=== PATIENT | female | born 1945 | race Caucasian/White ===

== ENCOUNTER 2019-03-22 09:59 | Emergency (ER) | payer MEDICARE ==
--- NOTE | 2019-03-22 10:31 | XRAY Report ---
Reason: chest pain Procedure Date: 03/22/2019 Accession Number: [id number] / [id number] Procedure: XR - Chest 1 View X-Ray CPT Code: 76219 Final Report FULL RESULT: EXAM: CHEST RADIOGRAPHY EXAM DATE: 03/22/2019 10:23 AM. CLINICAL HISTORY: Chest pain. COMPARISON: None. TECHNIQUE: 1 view. FINDINGS: Lungs/Pleura: No focal opacities evident. No visible pleural effusion. No pneumothorax. Mediastinum: Within exam limitations, the cardiomediastinal contour is normal. Other: Small hiatal hernia is suggested. IMPRESSION: No focal consolidations identified. Small hiatal hernia. RADIA
--- NOTE | 2019-03-22 10:34 | CT Report ---
Reason: near syncope Procedure Date: 03/22/2019 Accession Number: [id number] / [id number] Procedure: CT - Head W/O Stroke Protocol CPT Code: Final Report FULL RESULT: EXAM: CT HEAD EXAM DATE: 03/22/2019 10:16 AM. CLINICAL HISTORY: Near syncope. COMPARISON: BRAIN W/WO 02/23/2015 1:15 PM. TECHNIQUE: Multiaxial CT images were obtained from the foramen magnum to the vertex. Reformats: Sagittal and coronal. IV contrast: None. In accordance with CT protocol optimization, one or more of the following dose reduction techniques were utilized for this exam: automated exposure control, adjustment of mA and/or KV based on patient size, or use of iterative reconstructive technique. FINDINGS: Parenchyma: No intraparenchymal hemorrhage. No evidence of mass, midline shift, or CT findings of acute infarction. Toscano-white differentiation is distinct. Extraaxial Spaces: Normal for age. No subdural or epidural collections identified. Ventricles: Mild prominence of lateral ventricles similar to prior MRI. No mass-effect or no midline shift. Sinuses and Orbits: Imaged paranasal sinuses, orbits, and mastoids show no significant abnormality. Bones: No evidence of fracture or calvarial defect. Other: Mild right occipital scalp soft tissue thickening which may represent a contusion.. IMPRESSION: No CT evidence of acute intracranial process. RADIA The critical test notification system was initiated by Dr. Osmani Hollis at 10:32 AM on 03/22/2019. The above critical test findings were discussed with Dr. Raymond by Dr. Osmani Hollis at 10:34 AM on 03/22/2019.
[2019-03-22] MEDS ORDERED: ADENOSINE 6 MG/2 ML VIAL IVP ONE (10:38)
[2019-03-22 10:41] LABS: BASOPHILS % (AUTO) 0.5 %; EOSINOPHILS # (AUTO) 0.1 10^3/uL (0.0-0.7); EOSINOPHILS % (AUTO) 1.5 %; LYMPHOCYTES # (AUTO) 1.6 10^3/uL (1.5-3.5); LYMPHOCYTES % (AUTO) 19.6 %; MEAN CORPUSCULAR HEMOGLOBIN 29.3 pg (27.0-31.0); MEAN CORPUSCULAR HGB CONC 32.1 g/dL (32.0-36.0); MEAN CORPUSCULAR VOLUME 91.2 fL (81.0-99.0); MEAN PLATELET VOLUME 9.4 fL (7.9-10.8); MONOCYTES # (AUTO) 0.6 10^3/uL (0.0-1.0); MONOCYTES % (AUTO) 7.7 %; NEUTROPHILS # (AUTO) 5.8 10^3/uL (1.5-6.6); NEUTROPHILS % (AUTO) 70.3 %; PLT - PLATELET COUNT 248 10^3/uL (130-450); RED BLOOD COUNT 5.46 10^6/uL (4.20-5.40); RED CELL DISTRIBUTION WIDTH 13.5 % (12.0-15.0); WHITE BLOOD COUNT 8.2 x10^3/uL (4.8-10.8)
[2019-03-22] MEDS ORDERED: ADENOSINE 6 MG/2 ML VIAL IVP STA (10:41)
[2019-03-22 10:45] LABS: PT - PROTHROMBIN TIME 11.8 secs (9.9-12.6)
[2019-03-22 10:52] LABS: ALBUMIN 3.9 g/dL (3.2-5.5); ALBUMIN/GLOBULIN RATIO 1.2 (1.0-2.2); ALKALINE PHOSPHATASE 62 IU/L (42-121); ALT ALANINE AMINOTRANSFERASE 22 IU/L (10-60); AST ASPARTATE AMINOTRANSFERASE 26 IU/L (10-42); BILIRUBIN,TOTAL 1.4 mg/dL (0.2-1.0); BUN - BLOOD UREA NITROGEN 19 mg/dL (6-20); CALCIUM 9.5 mg/dL (8.5-10.3); CARBON DIOXIDE - CO2 21 mmol/L (21-32); CHLORIDE 108 mmol/L (101-111); CREATININE 0.8 mg/dL (0.4-1.0); GFR - MDRD 71 (>89); GLUCOSE 149 mg/dL (70-100); LIPASE 41 U/L (22-51); SODIUM 139 mmol/L (135-145); TOTAL PROTEIN 7.1 g/dL (6.7-8.2)
[2019-03-22 12:07] LABS: MUDS CUTOFF CONCENTRATIONS CUTOFF CONC BELOW:
[2019-03-22 12:09] LABS: BILIRUBIN,URINE NEGATIVE (NEGATIVE); GLUCOSE, URINE (UA) NEGATIVE (NEGATIVE); KETONES,URINE (UA) NEGATIVE (NEGATIVE); LEUKOCYTE ESTERASE, URINE SMALL (NEGATIVE); NITRITE,URINE POSITIVE (NEGATIVE); OCCULT BLOOD,URINE TRACE-INTA (NEGATIVE); PROTEIN,URINE NEGATIVE (NEGATIVE); UROBILINOGEN,URINE 0.2 (NORMAL) E.U./dL (NORMAL)
[2019-03-22 12:11] LABS: CLARITY,URINE HAZY (CLEAR)
[2019-03-22 12:19] LABS: AMPHETAMINE SCREEN,URINE NEGATIVE (NEGATIVE); BACTERIA,URINE Moderate /HPF (None Seen); BENZODIAZEPINES SCREEN, URINE NEGATIVE (NEGATIVE); COCAINE SCREEN URINE NEGATIVE (NEGATIVE); METHADONE SCREEN, URINE NEGATIVE (NEGATIVE); METHAMPHETAMINES SCREEN, URINE NEGATIVE (NEGATIVE); OPIATE SCREEN, URINE NEGATIVE (NEGATIVE); OXYCODONE SCREEN, URINE NEGATIVE (NEGATIVE); PROPOXYPHENE SCREEN, URINE NEGATIVE (NEGATIVE); RBC,URINE 0-5 /HPF (0-5); SQUAMOUS EPITHELIAL CELL,UR MANY Squamous (<= Few); TRICYCLIC ANTIDEPRESSANT,URINE NEGATIVE (NEGATIVE)
--- NOTE | 2019-03-22 12:36 | ED Physician Documentation ---
History of Present Illness - Stated complaint Stated Complaint: NUMBNESS - Chief complaint Chief Complaint: Neuro - History obtained from History obtained from: Patient - History of Present Illness Timing: Prior to arrival - Additonal information Additional information: This is a 73-year-old woman who presents with her complaints that she nearly passed out. He was down in his shop when she came down there to tell him something and she just kind of crumpled to the ground. She did not hit her head she did not pass out. He helped her up and they went back up to the house where she continued to complain that she was not feeling right. She did complain that she felt like her heart was beating fast right before she fell down. She also complained of a little numbness in her face. She is never had anything like this happen before but she has a history of Alzheimer's. Once he got her back to the house she seemed to be a little bit more confused than normal. She has not recently been ill. No sore throat stuffy nose or cough. No vomiting. She did not experience any incontinence. She did eat this morning. recalled an episode of A. fib when she was in [place] years ago. 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 fib. She was never placed on any treatment for it. Review of Systems Unable to obtain: Dementia Constitutional: denies: Fever Cardiac: reports: Palpitations Respiratory: denies: Cough GI: denies: Nausea, Vomiting, Diarrhea : denies: Dysuria Neurologic: reports: Near syncope PD PAST MEDICAL HISTORY - Past Medical History Cardiovascular: Atrial fibrillation - Allergies Allergies/Adverse Reactions: Allergies Allergy/AdvReac Type Severity Reaction Status Date / Time No Known Drug Allergies Allergy Verified 03/22/19 10:07 - Social History Does the pt smoke?: No Smoking Status: Never smoker PD ED PE NORMAL - Vitals Vital signs reviewed: Yes - General General: Alert and oriented X 3, No acute distress, Well developed/nourished, Other (Thin elderly woman she is mildly confused. Slow to answer questions.) - HEENT HEENT: Atraumatic, PERRL, Moist mucous membranes - Neck Neck: Supple, no meningeal sign, No adenopathy, Thyroid normal - Cardiac Cardiac: Other (Tachycardic) - Respiratory Respiratory: No respiratory distress (. No murmur.) - Abdomen Abdomen: Normal bowel sounds - Derm Derm: Normal color, Warm and dry, No rash - Neuro Neuro: [employer] 2-12 intact, No motor deficit, No sensory deficit, Normal speech - Psych Psych: Normal mood, Normal affect Results - Vitals Vitals: Vital Signs - 24 hr 03/22/19 03/22/19 03/22/19 10:20 10:30 11:00 Temperature 37.0 C Heart Rate 175 H 166 H 77 Respiratory 18 17 15 Rate Blood Pressure 115/80 98/78 101/71 O2 Saturation 99 96 97 03/22/19 03/22/19 03/22/19 12:00 12:30 12:59 Temperature 36.8 C Heart Rate 80 86 80 Respiratory 14 14 18 Rate Blood Pressure 112/73 114/74 115/79 O2 Saturation 97 99 98 Oxygen O2 Source Room air - EKG (time done) 1029 Rate: Rate (enter#) (170), Tachy Rhythm: SVT Intervals: No: Wide QRS Ischemia: Non specific changes Compare to prior EKG: Old EKG unavailable 1155 Rate: Rate (enter#) (74) Rhythm: NSR Intervals: Normal NE. No: Wide QRS Ischemia: Normal ST segments, T wave inversion (III, aVF) Compare to prior EKG: Changed from prior EKG (SVT has been converted to a sinus rhythm.) - Labs Labs: Laboratory Tests 03/22/19 03/22/19 03/22/19 10:30 10:30 10:30 WBC 8.2 RBC 5.46 H Hgb 16.0 Hct 49.8 H MCV 91.2 MCH 29.3 MCHC 32.1 RDW 13.5 Plt Count 248 MPV 9.4 Neut # (Auto) 5.8 Lymph # (Auto) 1.6 Worth # (Auto) 0.6 Eos # (Auto) 0.1 Baso # (Auto) 0.0 Absolute Nucleated RBC 0.00 Nucleated RBC % 0.0 PT 11.8 INR 1.0 Sodium 139 Potassium 3.8 Chloride 108 Carbon Dioxide 21 Anion Gap 10.0 BUN 19 Creatinine 0.8 Estimated GFR (MDRD) 71 L Glucose 149 H Calcium 9.5 Total Bilirubin 1.4 H AST 26 ALT 22 Alkaline Phosphatase 62 Troponin I High Sens Total Protein 7.1 Albumin 3.9 Globulin 3.2 Albumin/Globulin Ratio 1.2 Lipase 41 Urine Color Urine Clarity Urine pH Ur Specific [place] Urine Protein Urine Glucose (UA) Urine Ketones Urine Occult Blood Urine Nitrite Urine Bilirubin Urine Urobilinogen Ur Leukocyte Esterase Urine RBC Urine WBC Ur Squamous Epith Cells Urine Bacteria Ur Microscopic Review Urine Culture Comments Urine Opiates Screen Ur Oxycodone Screen Urine Methadone Screen Ur Propoxyphene Screen Ur Barbiturates Screen Ur Tricyclics Screen Ur Phencyclidine Scrn Ur Amphetamine Screen U Methamphetamines Scrn U Benzodiazepines Scrn Urine Cocaine Screen U Cannabinoids Screen Ethyl Alcohol < 5.0 03/22/19 03/22/19 10:30 11:46 WBC RBC Hgb Hct MCV MCH MCHC RDW Plt Count MPV Neut # (Auto) Lymph # (Auto) Worth # (Auto) Eos # (Auto) Baso # (Auto) Absolute Nucleated RBC Nucleated RBC % PT INR Sodium Potassium Chloride Carbon Dioxide Anion Gap BUN Creatinine Estimated GFR (MDRD) Glucose Calcium Total Bilirubin AST ALT Alkaline Phosphatase Troponin I High Sens 3.5 Total Protein Albumin Globulin Albumin/Globulin Ratio Lipase Urine Color YELLOW Urine Clarity HAZY Urine pH 6.0 Ur Specific [place] 1.015 Urine Protein NEGATIVE Urine Glucose (UA) NEGATIVE Urine Ketones NEGATIVE Urine Occult Blood TRACE-INTA Urine Nitrite POSITIVE H Urine Bilirubin NEGATIVE Urine Urobilinogen 0.2 (NORMAL) Ur Leukocyte Esterase SMALL H Urine RBC 0-5 Urine WBC 11-25 H Ur Squamous Epith Cells MANY Squamous H Urine Bacteria Moderate H Ur Microscopic Review INDICATED Urine Culture Comments NOT INDICATED Urine Opiates Screen NEGATIVE Ur Oxycodone Screen NEGATIVE Urine Methadone Screen NEGATIVE Ur Propoxyphene Screen NEGATIVE Ur Barbiturates Screen NEGATIVE Ur Tricyclics Screen NEGATIVE Ur Phencyclidine Scrn NEGATIVE Ur Amphetamine Screen NEGATIVE U Methamphetamines Scrn NEGATIVE U Benzodiazepines Scrn NEGATIVE Urine Cocaine Screen NEGATIVE U Cannabinoids Screen NEGATIVE Ethyl Alcohol - Rads (name of study) CXR Radiology: EMP read contemporaneously (neg acute), See rad report Ct head Radiology: See rad report (neg acute) PD MEDICAL DECISION MAKING - ED course Complexity details: reviewed results, re-evaluated patient, d/w patient, d/w family ED course: Patient was feeling better after she was converted. Was given 6 mg of adenosine IV. CT of the head was negative. Her labs appear normal. Her urine is contaminated and did not feel it was significant for treatment. The chest x-ray is clear. She is feeling better and ready to go home. She will be discharged with instructions to follow-up with her primary care provider about possible referral for cardiology. Departure - Departure Disposition: 01 Home, Self Care Clinical Impression: SVT (supraventricular tachycardia) Condition: Good Instructions: ED Tachycardia Pat PSVT Follow-Up: Michelle Velasco ARNP [Primary Care Provider] - Comments: Follow-up with your provider about whether they want you to be evaluated by cardiology for the SVT. Return if your symptoms return or worsen. Discharge Date/Time: 03/22/19 13:03
[2019-03-22 13:04] VITALS: BP 115/79
== END 2019-03-22 13:03 | disposition home or self-care (01) ==
LOC: ED 09:59
DX: I47.1 Supraventricular tachycardia (principal); G30.9 Alzheimer's disease, unspecified; F02.80 Dementia in other diseases classified elsewhere, unspecified severity, without behavioral disturbance, psychotic disturbance, mood disturbance, and anxiety
CPT/HCPCS: 36415; 70450; 71045; 80053; 81001; 83690; 84484; 85025; 85610; 93005; 96374; 99284; J0153; 80306; 80320; 81003; 87086

== ENCOUNTER 2020-07-14 13:01 | Outpatient (CLI) | payer MEDICARE | END 2020-07-14 13:02 | disposition home or self-care (01) | LOC: LAB.S 13:01 | DX: Z01.89 Encounter for other specified special examinations (principal) | CPT/HCPCS: 36415 ==

== ENCOUNTER 2020-10-23 15:42 | Outpatient (CLI) | payer MEDICARE ==
[2020-10-23 19:54] LABS: BASOPHILS % (AUTO) 0.3 %; EOSINOPHILS # (AUTO) 0.1 10^3/uL (0.0-0.7); HCT - HEMATOCRIT 36.1 % (37.0-47.0); LYMPHOCYTES # (AUTO) 1.1 10^3/uL (1.5-3.5); LYMPHOCYTES % (AUTO) 12.5 %; MEAN CORPUSCULAR HEMOGLOBIN 22.4 pg (27.0-31.0); MEAN CORPUSCULAR HGB CONC 27.7 g/dL (32.0-36.0); MEAN CORPUSCULAR VOLUME 80.9 fL (81.0-99.0); MEAN PLATELET VOLUME 10.2 fL (7.9-10.8); MONOCYTES # (AUTO) 0.8 10^3/uL (0.0-1.0); MONOCYTES % (AUTO) 9.2 %; NEUTROPHILS # (AUTO) 6.7 10^3/uL (1.5-6.6); NEUTROPHILS % (AUTO) 76.7 %; PLT - PLATELET COUNT 202 10^3/uL (130-450); RED BLOOD COUNT 4.46 10^6/uL (4.20-5.40); RED CELL DISTRIBUTION WIDTH 24.1 % (12.0-15.0); WHITE BLOOD COUNT 8.8 x10^3/uL (4.8-10.8)
[2020-10-23 19:57] LABS: SLIDE REVIEW? Indicated
[2020-10-23 20:10] LABS: % IRON SATURATION 12 % (20-50); IRON 58 ug/dL (28-170); TOTAL IRON BINDING CAPACITY 466 ug/dL (250-450); TRANSFERRIN 333 mg/dL (192-382)
[2020-10-23 20:38] LABS: PLATELET ESTIMATE, MANUAL NORMAL (130-450,000) (NORMAL); PLATELET MORPHOLOGY NORMAL APPEARANCE (NORMAL)
== END 2020-10-23 15:43 | disposition home or self-care (01) ==
LOC: LAB.S 15:42
PROVIDERS: ATTEND Nurse Practitioner Family
DX: D50.9 Iron deficiency anemia, unspecified (principal)
CPT/HCPCS: 36415; 82728; 83540; 84466; 85025

== ENCOUNTER 2022-07-06 11:24 | Outpatient (CLI) | payer MEDICARE | END 2022-07-06 23:59 | disposition critical access hospital (66) | LOC: EMS 11:24 | DX: R06.00 Dyspnea, unspecified (principal); R61 Generalized hyperhidrosis; F41.9 Anxiety disorder, unspecified | CPT/HCPCS: A0425; A0429 ==

== ENCOUNTER 2022-07-06 11:47 | Emergency (ER) | payer MEDICARE ==
--- NOTE | 2022-07-06 11:49 | ED Physician Documentation ---
PD HPI DYSPNEA - Stated complaint Stated Complaint: SOA - History obtained from History obtained from: Patient, EMS - Additional information Additional information: 77-year-old woman with dementia, history of SVT and PE, not on anticoagulation, had COVID a couple of weeks ago treated with molnupiravir presents for shortness of breath. Reportedly from EMS memory care facility staff found her tachypneic. She has an order for as needed oxygen but it was not applied. They found her oxygen saturation to be 89% better on supplemental oxygen. The patient is fairly demented and unable to give any useful history. PD PAST MEDICAL HISTORY - Past Medical History Cardiovascular: Atrial fibrillation - Present Medications Home Medications: Ambulatory Orders Medication Instructions Recorded Confirmed Rivaroxaban [Xarelto] 15 mg PO BID #42 tablet 07/06/22 Rivaroxaban [Xarelto] 20 mg PO DAILY #90 tablet 07/06/22 - Allergies Allergies/Adverse Reactions: Allergies Allergy/AdvReac Type Severity Reaction Status Date / Time No Known Drug Allergies Allergy Verified 03/22/19 10:07 - Social History Does the pt smoke?: No Smoking Status: Never smoker PD ED PE NORMAL - Vitals Vital signs reviewed: Yes - General General: Other (She is alert and oriented to person but not place or time or events. She does appear mildly tachypneic.) - Neck Neck: Supple, no meningeal sign, No bony TTP - Cardiac Cardiac: RRR, No murmur - Respiratory Respiratory: Other (Mild tachypnea, clear lungs) - Abdomen Abdomen: Non tender - Extremities Extremities: No edema, No calf tenderness / cord - Neuro Eye Opening: Spontaneous Motor: Obeys Commands Verbal: Confused GCS Score: 14 Results - Vitals Vitals: Vital Signs - 24 hr 07/06/22 07/06/22 11:55 13:54 Temperature 36.5 C Heart Rate 93 89 Respiratory 26 H 25 H Rate Blood Pressure 118/69 128/72 O2 Saturation 89 L 92 If not protocol 4 : Oxygen Flow, liters/minute Oxygen O2 Source Nasal cannula Oxygen Flow Rate 4 - EKG (time done) 1154 EKG releavant findings:: EKG personally interpreted by author of this note. Relevant findings are: Rate: Rate (enter#) (80) Rhythm: NSR [place]: Normal Intervals: Normal [place] QRS: Normal Ischemia: Non specific changes. No: ST elevation c/w ischemia, ST depression - Labs Labs: Microbiology 07/06/22 13:15 Occult Blood - Final Stool Laboratory Tests 07/06/22 07/06/22 07/06/22 12:14 12:14 12:14 WBC 13.1 H RBC 4.11 L Hgb 7.4 L Hct 28.1 L MCV 68.4 L MCH 18.0 L MCHC 26.3 L RDW 19.6 H Plt Count 246 MPV 9.1 Neut # (Auto) 11.7 H Lymph # (Auto) 0.6 L [place] # (Auto) 0.8 Eos # (Auto) 0.0 Baso # (Auto) 0.0 Absolute Nucleated RBC 0.04 Nucleated RBC % 0.3 Manual Slide Review Indicated RBC Morph Micro Appear 4+ ANISOCYTOSIS VBG pH VBG pCO2 VBG pO2 VBG HCO3 VBG Total CO2 VBG O2 Saturation VBG Base Excess Sodium 140 Potassium 4.3 Chloride 110 Carbon Dioxide 23 Anion Gap 7.0 BUN 17 Creatinine 0.8 Estimated GFR (MDRD) 70 L Glucose 135 H Calcium 9.2 Magnesium 2.2 Total Bilirubin 0.8 AST 19 ALT 14 Alkaline Phosphatase 98 Troponin I High Sens 110.8 H* B-Natriuretic Peptide Total Protein 7.3 Albumin 3.5 Globulin 3.8 Albumin/Globulin Ratio 0.9 L 07/06/22 07/06/22 12:14 12:14 WBC RBC Hgb Hct MCV MCH MCHC RDW Plt Count MPV Neut # (Auto) Lymph # (Auto) [place] # (Auto) Eos # (Auto) Baso # (Auto) Absolute Nucleated RBC Nucleated RBC % Manual Slide Review RBC Morph Micro Appear VBG pH 7.397 VBG pCO2 34.3 L VBG pO2 20.1 L VBG HCO3 20.6 L VBG Total CO2 21.7 L VBG O2 Saturation 33.7 L VBG Base Excess -3.7 L Sodium Potassium Chloride Carbon Dioxide Anion Gap BUN Creatinine Estimated GFR (MDRD) Glucose Calcium Magnesium Total Bilirubin AST ALT Alkaline Phosphatase Troponin I High Sens B-Natriuretic Peptide 255 H Total Protein Albumin Globulin Albumin/Globulin Ratio - Rads (name of study) CT pulmonary angiogram Relevant Findings:: Final report received, Discussed with rads, EMP independent interpretation of test PD Medical Decision Making - ED course ED course: 77-year-old woman presents with acute shortness of breath and hypoxemia. She reportedly has a history of thromboembolic disease. Wet read of CT showing pulmonary emboli. Note on her CBC that her hemoglobin is low. She has a history of iron deficiency anemia. Rectal exam for guaiac was done. Troponin was positive due to cardiac strain. Her arrived at the bedside approximately 115 and I gave her the preliminary diagnosis. He says that her prior PE was about a year ago and she did require catheter guided thrombolysis at a hospital in [place]. She was on anticoagulants for 6 months, but she had been traveling so it was thought to be a provoked PE and she is no longer on anticoagulants. The radiology report confirmed extensive pulmonary emboli with mild right heart strain. This was discussed with the . The patient is very demented. He notes that she is DNR and comfort care and actually really did not want her transported to the hospital in the first place. We discussed options for care including but not limited to hospitalization here with systemic anticoagulation, transfer to a tertiary facility for evaluation with echocardiogram and possible catheter guided Thrombolysis. He notes that given the current goals of care he would like her discharged back to [facility] on anticoagulants. He understands there is some risk of imminent mortality and morbidity based on her diagnosis. Prior to discharge the asked for a referral to hospice, he has already been in contact with their medical massage therapist. Said referral was placed. Departure - Departure Disposition: 01 Home, Self Care Clinical Impression: Pulmonary embolism Qualifiers: Pulmonary embolism type: unspecified Chronicity: acute Acute cor pulmonale presence: with acute cor pulmonale Qualified Code(s): I26.09 - Other pulmonary embolism with acute cor pulmonale Condition: Good Record reviewed to determine appropriate education?: Yes Instructions: Embolism Pulmonary Dc Prescriptions: Rivaroxaban [Xarelto] 15 mg PO BID #42 tablet Rivaroxaban [Xarelto] 20 mg PO DAILY #90 tablet Comments: Shauna does have large pulmonary emboli, her did not want her hospitalized or transported to [place] for intervention. She received a shot of Lovenox here. She will need supplemental oxygen per orders. She is always welcome to return if worse but noting that her had signed a do not transport order. Discharge Date/Time: 07/06/22 14:27
[2022-07-06] MEDS ORDERED: iohexoL-300 100 ML VIAL ONE (11:54)
[2022-07-06 12:18] LABS: BASOPHILS % (AUTO) 0.1 %; EOSINOPHILS % (AUTO) 0.1 %; HCT - HEMATOCRIT 28.1 % (37.0-47.0); HGB - HEMOGLOBIN 7.4 g/dL (12.0-16.0); LYMPHOCYTES # (AUTO) 0.6 10^3/uL (1.5-3.5); LYMPHOCYTES % (AUTO) 4.5 %; MEAN CORPUSCULAR HGB CONC 26.3 g/dL (32.0-36.0); MEAN CORPUSCULAR VOLUME 68.4 fL (81.0-99.0); MEAN PLATELET VOLUME 9.1 fL (7.9-10.8); MONOCYTES # (AUTO) 0.8 10^3/uL (0.0-1.0); MONOCYTES % (AUTO) 5.8 %; NEUTROPHILS # (AUTO) 11.7 10^3/uL (1.5-6.6); NRBC ABSOLUTE COUNT (AUTO) 0.04 x10^3/uL; NUCLEATED RED BLOOD CELLS AUTO 0.3 /100WBC; PLT - PLATELET COUNT 246 10^3/uL (130-450); RED BLOOD COUNT 4.11 10^6/uL (4.20-5.40); RED CELL DISTRIBUTION WIDTH 19.6 % (12.0-15.0); WHITE BLOOD COUNT 13.1 x10^3/uL (4.8-10.8)
[2022-07-06 12:22] LABS: VBG BASE EXCESS -3.7 mmol/L (-2 - +2); VBG HCO3 20.6 mmol/L (23-28); VBG PCO2 34.3 mmHg (41-51); VBG PH 7.397 (7.31-7.41); VBG PO2 20.1 mmHg (25-47); VBG TOTAL CO2 21.7 mmol/L (24-29)
[2022-07-06 12:23] LABS: VBG OXYGEN SATURATION 33.7 % (60-80)
[2022-07-06 12:24] LABS: RBC MORPHOLOGY (MULTIPLE) 4+ ANISOCYTOSIS (NORMAL); SLIDE REVIEW? Indicated
[2022-07-06 12:31] LABS: ALBUMIN 3.5 g/dL (3.2-5.5); ALBUMIN/GLOBULIN RATIO 0.9 (1.0-2.2); BILIRUBIN,TOTAL 0.8 mg/dL (0.2-1.0); CALCIUM 9.2 mg/dL (8.5-10.3); CREATININE 0.8 mg/dL (0.4-1.0); MAGNESIUM 2.2 mg/dL (1.7-2.8); POTASSIUM 4.3 mmol/L (3.5-5.0); TOTAL PROTEIN 7.3 g/dL (6.7-8.2)
--- NOTE | 2022-07-06 13:35 | CT Report ---
PROCEDURE: ANGIO CHEST W/WO INDICATIONS: PE protocol, dyspnea, recent covid CONTRAST: 80ml omni 300 TECHNIQUE: After the administration of intravenous contrast, 2 mm axial images were acquired from the pulmonary apices to the posterior costophrenic angles during the arterial phase. In addition, 1 mm lung kernel and 5 mm soft tissue kernel reconstructions were performed. 3-dimensional coronal oblique maximum int ensity projection (MIP) reformats, 8 mm axial MIP, and 5 mm coronal and sagittal MPR reformats were t hen performed through the thorax. For radiation dose reduction, the following was used: automated exp osure control, adjustment of mA and/or kV according to patient size. COMPARISON: None FINDINGS: Image quality: Adequate. There is respiratory motion.. Large vessels: There are filling defects bilaterally at the origin of the left upper lobe pulmonary a rtery and at the bifurcation of the left lower lobe anterior and lateral basal segments. Additionally , filling defects are seen at the distal end of the right pulmonary arteries involving upper, middle, and lower lobe pulmonary arteries proximally. Lungs and pleura: There is respiratory motion. Small peripheral opacity in the lateral right middle l obe. There may be a soft tissue nodule in the left perihilar region measuring 1.2 cm, 7/126. No pleur al effusion or other dense consolidation. Mediastinum: The heart is enlarged. Right heart chambers may be slightly enlarged. There may be sligh t intraventricular septal bowing towards the left. No pericardial effusions. No mediastinal adenopath y by size criteria. There is a large hiatal hernia containing about the proximal third of the stomach and GE junction. Chest wall and lower neck: Thyroid is unremarkable. No axillary or supraclavicular adenopathy by size . Bones: No aggressive osseous abnormality. Upper Abdomen: Unremarkable. IMPRESSION: Extensive pulmonary emboli bilaterally involving upper and lower lobes. There may be right heart stra in given slightly enlarged right heart chambers compared to the left. Overall heart is diffusely enla rged. Findings discussed with Dr. Godfrey in the emergency room at 1231 [place] daylight time. Reviewed by: Lesa Bourgeois MD on 07/06/2022 12:33 PM [facility] Approved by: Lesa Bourgeois MD on 07/06/2022 12:33 PM [facility] Station ID: [id number]
[2022-07-06] MEDS ORDERED: ENOXAPARIN 80 MG/0.8 ML SYRINGE SUBQ STA (13:40)
[2022-07-06 13:56] VITALS: BP 128/72
[2022-07-06] MEDS ORDERED: HEPARIN 25000UNITS/500ML (D5W) 25,000 UNIT/500 ML BAG IV SCH (14:00)
[2022-07-06] MEDS ORDERED: iohexoL-300 100 ML VIAL IVP ONE (16:13)
== END 2022-07-06 14:27 | disposition home or self-care (01) ==
LOC: EDUNIT# → ED 11:47
DX: I26.09 Other pulmonary embolism with acute cor pulmonale (principal); F03.90 Unspecified dementia, unspecified severity, without behavioral disturbance, psychotic disturbance, mood disturbance, and anxiety; I47.1 Supraventricular tachycardia; Z86.711 Personal history of pulmonary embolism
CPT/HCPCS: 36415; 71275; 80053; 82272; 82803; 83735; 83880; 84484; 85025; 93005; 96372; 99284; J1650; Q9967

== ENCOUNTER 2022-07-06 14:29 | Outpatient (CLI) | payer MEDICARE | END 2022-07-06 23:59 | disposition home or self-care (01) | LOC: EMS 14:29 | PROVIDERS: ATTEND Emergency Medicine | DX: R41.0 Disorientation, unspecified (principal); I26.99 Other pulmonary embolism without acute cor pulmonale; Z99.81 Dependence on supplemental oxygen | CPT/HCPCS: A0425; A0428 ==